=== PATIENT | male | born 1970 | race Caucasian/White ===

== ENCOUNTER 2017-03-04 21:44 | Emergency (ER) | payer OTHER ==
[2017-03-04 22:04] VITALS: BP 139/100; PULSE 90; RESP 18; TEMP 97.8; O2SAT 97
== END 2017-03-04 22:08 | disposition home or self-care (01) | DRG 605 ==
LOC: ED 21:44
DX: S60.222A Contusion of left hand, initial encounter (principal); W23.0XXA Caught, crushed, jammed, or pinched between moving objects, initial encounter; Y92.149 Unspecified place in prison as the place of occurrence of the external cause
CPT/HCPCS: 73130; 99282